=== PATIENT | male | born 2005 | race Two or more races ===

== ENCOUNTER 2025-01-22 15:48 | Emergency (ER) | payer MEDICAID, SELFPAY ==
[2025-01-22 15:50] VITALS: BMI 34.4
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
[2025-01-22 16:34] VITALS: BP 108/75; PULSE 89; RESP 18; TEMP 36.6; O2SAT 99
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
== END 2025-01-22 19:05 | disposition home or self-care (01) ==
PROVIDERS: Emergency Provider Emergency Medicine
DX: S06.0X0A Concussion without loss of consciousness, initial encounter (principal); S19.9XXA Unspecified injury of neck, initial encounter; S29.9XXA Unspecified injury of thorax, initial encounter; V86.56XA Driver of dirt bike or motor/cross bike injured in nontraffic accident, initial encounter
CPT/HCPCS: 70450; 71250; 72125; 74176; 99284

== ENCOUNTER 2025-09-11 16:32 | Emergency (ER) | payer MEDICAID, SELFPAY ==
[2025-09-11 16:43] VITALS: BP 146/85; PULSE 79; RESP 18; TEMP 36.9; O2SAT 98; BMI 35.5
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
[2025-09-11] MEDS: IBUPROFEN TAB 400 MG TABLET 800 MG PO (17:15)
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
== END 2025-09-11 17:42 | disposition home or self-care (01) ==
DX: S92.912A Unspecified fracture of left toe(s), initial encounter for closed fracture (principal); W20.8XXA Other cause of strike by thrown, projected or falling object, initial encounter
CPT/HCPCS: 73630; 99281; A9270